=== PATIENT | female | born 1960 | race Caucasian/White ===

== ENCOUNTER 2016-09-04 18:48 | Emergency (ER) | payer OTHER ==
[2016-09-04 18:58] VITALS: TEMP 98.5; BMI 24.4
--- NOTE | 2016-09-04 19:20 | PDOC ---
History of Present Illness - History of Present Illness Initial Comments: 09/04/16 23:12 Patient is a 56 year old female with significant medical hx of nerve palsy, arthritis, and hyperlipidemia who is presenting to the ED with one week of blurry vision and one day of slurred speech. The patient reports she had blurry vision for over a week but she figured it was due to her history of nerve palsy. Today she woke up with difficulty speaking that was waxing and waning. She also complains of dizziness and nausea. <Celeste Rivas - Last Filed: 09/04/16 23:12> <Linette Levine - Last Filed: 09/04/16 23:50> - General Chief Complaint: CVA/TIA Stated Complaint: BLURRY VISION/DIFF BREATHING Time Seen by Provider: 09/04/16 19:16 Past History <Celeste Rivas - Last Filed: 09/04/16 23:12> - Past Medical History Anemia: No Asthma: No Cancer: No Cardiac Disorders: No CVA: No COPD: No CHF: No Dementia: No Diabetes: No GI Disorders: Yes (H/O COLON POLYPS) Disorders: No HTN: No Hypercholesterolemia: Yes (NO MEDICATIONS) Liver Disease: No Seizures: No Thyroid Disease: No Other medical history: ARTHRITIS - Surgical History Abdominal Surgery: No Appendectomy: Yes Cardiac Surgery: No Cholecystectomy: No Lung Surgery: No Neurologic Surgery: No Orthopedic Surgery: No - Psycho/Social/Smoking Cessation Hx Suicidal Ideation: No Smoking History: Never smoked Have you smoked in the past 12 months: No If you are a former smoker, when did you quit?: 2009 Information on smoking cessation initiated: No Hx Alcohol Use: Yes (SOCIALLY) Drug/Substance Use Hx: No Substance Use Type: Alcohol Hx Substance Use Treatment: No <Linette Levine - Last Filed: 09/04/16 23:50> - Past Medical History Allergies/Adverse Reactions: Allergies Allergy/AdvReac Type Severity Reaction Status Date / Time No Known Allergies Allergy Verified 09/04/16 18:58 Home Medications: Ambulatory Orders NK [No Known Home Medication] 09/04/16 Review of Systems - Review of Systems Comments:: 09/04/16 23:13 CONSTITUTIONAL: Absent: fever, chills, diaphoresis, generalized weakness, malaise, loss of appetite HEENT: Present: diplopia Absent: rhinorrhea, nasal congestion, throat pain, throat swelling, difficulty swallowing, mouth swelling, ear pain, eye pain CARDIOVASCULAR: Absent: chest pain, syncope, palpitations, irregular heart rate, lightheadedness , peripheral edema RESPIRATORY: Absent: cough, shortness of breath, dyspnea with exertion, orthopnea, wheezing, stridor, hemoptysis GASTROINTESTINAL: Present: nausea Absent: abdominal pain, abdominal distension, vomiting, diarrhea, constipation, melena, hematochezia GENITOURINARY: Absent: dysuria, frequency, urgency, hesitancy, hematuria, flank pain, genital pain MUSCULOSKELETAL: Absent: myalgia, arthralgia, joint swelling SKIN: Absent: rash, itching, pallor HEMATOLOGIC/IMMUNOLOGIC: Absent: easy bleeding, easy bruising, lymphadenopathy, frequent infections ENDOCRINE: Absent: unexplained weight gain, unexplained weight loss, heat intolerance, cold intolerance NEUROLOGIC: Present: slurred speech, dizziness Absent: headache, focal weakness or paresthesia, unsteady gait, seizure, mental status changes, bladder or bowel incontinence. PSYCHIATRIC: Absent: anxiety, depression, suicidal or homicidal ideation, hallucinations <Celeste Rivas - Last Filed: 09/04/16 23:12> *Physical Exam - Vital Signs Last Vital Signs Temp Pulse Resp BP Pulse Ox 98.5 F 88 18 182/95 100 09/04/16 18:53 09/04/16 18:53 09/04/16 18:53 09/04/16 18:53 09/04/16 19:20 - Physical Exam Comments: 09/04/16 23:15 GENERAL: Well developed, well nourished. Awake and alert. No acute distress. HEENT: Normocephalic, atraumatic. PERRLA. Extraoccular eye movements show superior oblique palsy. No conjunctival pallor. Sclera are non-icteric. Moist mucous membranes. Oropharynx is clear. NECK: Supple. Full ROM. No JVD. Carotid pulses 2+ and symmetric, without bruits. No thyromegaly. No lymphadenopathy. CARDIOVASCULAR: Regular rate and rhythm. No murmurs, rubs, or gallops. Distal pulses are 2+ and symmetric. PULMONARY: No evidence of respiratory distress. Lungs clear to auscultation bilaterally. No wheezing, rales or rhonchi. ABDOMINAL: Soft. Non-tender. Non-distended. No rebound or guarding. No organomegaly. Normoactive bowel sounds. MUSCULOSKELETAL: Normal range of motion at all joints. No bony deformities or tenderness. No CVA tenderness. EXTREMITIES: No cyanosis. No clubbing. No edema. No calf tenderness. SKIN: Warm and dry. Normal capillary refill. No rashes. No jaundice. NEUROLOGICAL: Alert, awake, appropriate. Cranial nerves 2-12 intact. No gross focal neural deficits. Mild facial numbness on the left. Normal speech. Gait is normal without ataxia. PSYCHIATRIC: Cooperative. Good eye contact. Appropriate mood and affect. <Celeste Rivas - Last Filed: 09/04/16 23:12> - Vital Signs Last Vital Signs Temp Pulse Resp BP Pulse Ox 98.5 F 88 18 182/95 98 09/04/16 18:53 09/04/16 18:53 09/04/16 18:53 09/04/16 18:53 09/04/16 18:53 <Linette Levine - Last Filed: 09/04/16 23:50> Discharge Disposition <Celeste Rivas - Last Filed: 09/04/16 23:12> <Linette Levine - Last Filed: 09/04/16 23:50> - Diagnosis Gaze palsy, Vilchis's palsy - Discharge Dispostion Disposition: HOME Condition at time of disposition: Stable - Referrals Referrals: Gosia Baron MD [Primary Care Provider] - - Patient Instructions Printed Discharge Instructions: DI for Vilchis's Palsy, DI for Visual Field Disturbances Additional Instructions: Tomorrow see Dr Gosia Baron -she is going to make arrangement for further neurological testing and 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 ED Treatment Course - LABORATORY CBC & Chemistry Diagram: 09/04/16 19:30 09/04/16 19:30 - ADDITIONAL ORDERS Additional order review: Laboratory Results 09/04/16 09/04/16 19:30 19:30 INR 0.95 Urine Color Colorless Urine Appearance Clear Urine pH 6.0 Ur Specific Grandy 1.002 Urine Protein Negative Urine Glucose (UA) Negative Urine Ketones Negative Urine Blood Negative Urine Nitrite Negative Urine Bilirubin Negative Urine Urobilinogen Negative Ur Leukocyte Esterase Trace H Urine RBC <1 Urine WBC 1 Ur Epithelial Cells Rare Urine Bacteria Few 09/04/16 19:30 RBC 4.63 MCV 93.1 MCHC 33.7 RDW 12.5 MPV 7.2 L Neutrophils % 61.7 Lymphocytes % 28.2 Monocytes % 7.2 Eosinophils % 1.9 Basophils % 1.0 - RADIOLOGY Radiograph Interpretation: 09/04/16 20:15 Aircraft Ordnance Technician: (eligioman) Begin of Report Content Referring Physician: Linette Levine Ina Escamilla Spoke with Dr. Levine at 1946 hrs THIS DOCUMENT HAS BEEN ELECTRONICALLY SIGNED Keaton Ya MD 09/04/2016 19:47 EST M.D. Please call [facility] [phone] with questions. PREVIOUS REPORT: Referring Physician: Linette Levine Patient Name: Ina Escamilla THIS IS A PRELIMINARY REPORT FROM [facility] DATE OF SERVICE: 2015-01-21 13:36:06.0 IMAGES: 166 EXAM: CT of the brain without contrast HISTORY:Possible cerebrovascular accident COMPARISON: None. FINDINGS:Serial transaxial images of the brain are available without intravenous contrast agent. The brain parenchyma is normal. The ventricular system is within normal limits. Mastoid air cells are well-aerated. The calvarium appears intact. Visible portions of the paranasal sinuses are well-aerated. IMPRESSION: Negative study THIS DOCUMENT HAS BEEN ELECTRONICALLY SIGNED Keaton Ya MD 09/04/2016 19:40 EST M.D. Please call [facility] [phone] with questions. End of Report Content - Medications Given in the ED: ED Medications Discontinued Medications Generic Name Dose Route Start Last Admin Trade Name Freq PRN Reason Stop Dose Admin Acetaminophen 1,000 mg 09/04/16 19:50 09/04/16 19:54 Ofirmev Injection - IVPB 09/04/16 19:51 1,000 mg ONCE ONE Administration <Celeste Rivas - Last Filed: 09/04/16 23:12> - LABORATORY CBC & Chemistry Diagram: 09/04/16 19:30 09/04/16 19:30 <Linette Levine - Last Filed: 09/04/16 23:50> Attestations - Attestations 09/04/16 23:18 Documentation prepared by Celeste Rivas, acting as medical records specialist for Linette Levine MD. <Celeste Rivas - Last Filed: 09/04/16 23:12>
[2016-09-04] MEDS ORDERED: SODIUM CHLORIDE 1,000 ML IV SCH (19:30)
[2016-09-04] MEDS ORDERED: ACETAMINOPHEN INJECTION 100 ML IVPB ONE (19:50)
[2016-09-04] MEDS ORDERED: ACETAMINOPHEN 1000 MG/100 ML VIAL (NON FORMULARY) IVPB ONE (19:50)
[2016-09-04 19:52] LABS: EOSINOPHIL 1.9 % (0-4.5); MCH 31.4 pg (25.7-33.7); MCHC 33.7 g/dl (32.0-36.0); MEAN CELL VOLUME 93.1 fl (80-96); MEAN PLT VOLUME 7.2 fl (7.5-11.1); NEUTROPHILS 61.7 % (42.8-82.8); PLATELET COUNT 330 K/MM3 (134-434); RDW 12.5 % (11.6-15.6); WHITE BLOOD COUNT 5.9 K/mm3 (4.0-10.0)
[2016-09-04 19:53] LABS: URINE APPEARANCE CLEAR; URINE BILIRUBIN NEGATIVE (NEGATIVE); URINE BLOOD NEGATIVE (NEGATIVE); URINE COLOR COLORLESS; URINE GLUCOSE (UA) NEGATIVE (NEGATIVE); URINE KETONE NEGATIVE (NEGATIVE); URINE NITRITE NEGATIVE (NEGATIVE); URINE PROTEIN NEGATIVE (NEGATIVE); URINE UROBILINOGEN NEGATIVE E.U./dl (0.2-1.0)
[2016-09-04 19:57] LABS: URINE LEUK ESTERASE TRACE (NEGATIVE)
[2016-09-04 20:01] LABS: URINE BACTERIA FEW /hpf (NONE SEEN); URINE RBC <1 /hpf (0-3); URINE WBC 1 /hpf (3-5)
[2016-09-04 20:06] LABS: INR 0.95 (0.82-1.09); PROTHROMBIN TIME (PATIENT) 10.4 SEC (9.98-11.88)
[2016-09-04 20:46] LABS: ALBUMIN 4.3 g/dl (3.4-5.0); ALK PHOS 101 U/L (45-117); ANION GAP 5 (8-16); BILIRUBIN,TOTAL 0.3 mg/dL (0.2-1.0); CALCIUM 9.2 mg/dL (8.5-10.1); CHOLESTEROL 267 mg/dL (50-200); CO2 30 mmol/L (21-32); CREATININE 0.6 mg/dL (0.55-1.02); GLUCOSE,RANDOM 105 mg/dL (74-106); LDL CHOLESTEROL (ONLY SJRH) 176 mg/dL (5-100); SGOT/AST 19 U/L (15-37); SGPT/ALT 32 U/L (12-78); TOT PROT 7.6 g/dl (6.4-8.2); TROPONIN I < 0.02 ng/ml (0.00-0.05)
[2016-09-04] MEDS ORDERED: predniSONE 20 MG TABLET (UD) PO ONE (22:53)
[2016-09-04] MEDS ORDERED: ACYCLOVIR 400 MG TABLET PO ONE (22:54)
[2016-09-04] MEDS ORDERED: predniSONE 20 MG TABLET (UD) ONE (22:58)
[2016-09-04] MEDS ORDERED: ACYCLOVIR 200 MG CAPSULE ONE (22:58)
[2016-09-05 00:08] VITALS: BP 156/87; PULSE 77
--- NOTE | 2016-09-05 09:52 | EKG ---
Test Reason : Blood Pressure : / mmHG Vent. Rate : 072 BPM Atrial Rate : 072 BPM P-R Int : 140 ms QRS Dur : 082 ms QT Int : 390 ms P-R-T Axes : 033 013 032 degrees QTc Int : 427 ms NORMAL SINUS RHYTHM NORMAL ECG NO PREVIOUS ECGS AVAILABLE Confirmed by LILLI PAEZ MD ([id number]) on 09/05/2016 9:52:08 AM Referred By: Overread By: LILLI PAEZ MD
== END 2016-09-05 00:08 | disposition home or self-care (01) ==
LOC: JER 18:48
PROC: 3E0337Z Introduction of Electrolytic and Water Balance Substance into Peripheral Vein, Percutaneous Approach (ICD-10-PCS; principal; 2016-09-04)
PROC: 3E033NZ Introduction of Analgesics, Hypnotics, Sedatives into Peripheral Vein, Percutaneous Approach (ICD-10-PCS; 2016-09-04)
DX: G51.0 Bell's palsy (principal)
CPT/HCPCS: 36415; 70450-TC; 71010-TC; 80053; 81003; 81015; 82465; 82550; 83718; 83721; 84478; 84484; 85025; 85610; 86850; 86900; 86901; 93005; 93010; 99285-25

== ENCOUNTER 2019-07-11 07:32 | Day surgery (SDC) | payer OTHER ==
[2019-07-08 12:27] VITALS: BMI 27.1
[2019-07-11] MEDS ORDERED: BUPIVACAINE HCL/PF 2.5 MG/ML - 30 ML VIAL IJ ONE (10:05)
[2019-07-11] MEDS ORDERED: EPINEPHrine 1:1,000 1 MG/1 ML - 30ML VIAL (INJECTION) ONE (10:05)
[2019-07-11] MEDS ORDERED: PROPOFOL 20 ML ONE ×4 (10:25→10:54)
[2019-07-11] MEDS ORDERED: ceFAZolin SODIUM 1 GM VIAL ONE (10:43)
[2019-07-11] MEDS ORDERED: KETOROLAC TROMETHAMINE 30 MG/1 ML VIAL ONE (11:09)
[2019-07-11] MEDS ORDERED: BUPIVACAINE HCL/PF 0.25% (2.5MG/ML) 10 ML VIAL IJ ONE (11:15)
[2019-07-11] MEDS ORDERED: oxyCODONE HCL 5 MG TABLET PO PRN (11:32)
[2019-07-11] MEDS ORDERED: ONDANSETRON 4 MG/2 ML VIAL IVPUSH PRN (11:32)
[2019-07-11] MEDS ORDERED: ACETAMINOPHEN 325 MG TABLET (FP) PO PRN (11:32)
[2019-07-11 12:53] VITALS: BP 132/76; PULSE 75; TEMP 98
--- NOTE | 2019-07-11 13:55 | OP ---
DATE OF OPERATION: 07/11/2019 Done at [facility] SURGEON: Stephan Graves MD MANAGER STRATEGIC: ROMULO Liu PREOPERATIVE DIAGNOSES: 1. Left knee medial and lateral meniscal tear. 2. Left knee cartilage injury. 3. Left knee synovitis. POSTOPERATIVE DIAGNOSES: 1. Left knee medial and lateral meniscal tear. 2. Left knee cartilage injury. 3. Left knee synovitis. PROCEDURE: 1. Left knee arthroscopy with partial meniscectomy, medial and lateral meniscus, CPT code 15579. 2. Left knee arthroscopy with chondroplasty and abrasion-plasty, CPT code 74907. 3. Left knee arthroscopy with synovectomy, CPT code 24928. FINDINGS: 1. Medial meniscus [id number]-[id number] horn tear. 2. Lateral meniscus central [id number] horn tear. 3. Synovitis patellofemoral medial and lateral notch area. 4. Central grade 3-4 cartilage injury central medial femoral condyle with cartilage flap 6 cm x 4 cm. 5. ACL and PCL intact. 6. Diffuse grade 1-2 cartilage injury lateral joint line. 7. Central grade 2-3 cartilage injury patella with 3-4 changes patellofemoral trochlea central /. PROCEDURE: Informed consent was obtained. The patient came to the operating room, where the lower extremity was prepped and draped in a sterile fashion. A tourniquet was placed on the upper thigh, but not inflated. Using standard arthroscopic technique, a lateral incision and portal was made to allow for introduction of the camera into the suprapatellar bursa. This was then taken to the medial joint line, where under direct visualization, a medial incision and portal was made. Excessive synovium noted in the medial, lateral and patellofemoral and notch area was removed by an upbiter, shaver and Bovie cautery. This was found to bring in inflammatory tissue into the joint surface, a source of pain and dysfunction. Probing of the medial and lateral meniscus found tears, as described in the findings. These were removed with the upbiter and shaver and taken back to a stable rim. Grade 2 to 3 degenerative changes were treated with a chondroplasty, removing all flaking surfaces with low-setting Bovie along the periphery to prevent further flaking. Grade 4 changes, as noted, were treated with an abrasoplasty, creating a bleeding surface at the bone/cartilage interface. Aggressive debridement with shaver/jose j created bleeding surface. Micro fracture also done when indicated in findings. All areas of the knee were once again reexamined. The knee was then drained and a single suture was placed in all portals. A sterile dressing was placed and the patient was transferred to the recovery room without complication. The PA listed above was present and assisted at surgery. Their presence was absolutely medically necessary for the completion of the procedure. They helped hold the arthroscopy, pass instruments (and implants when indicated) and the procedure could not have been completed without their assistance. STEPHAN GRAVES M.D. [id number]
--- NOTE | 2019-07-16 13:36 | PATH ---
Surgical Pathology Report Patient Name: CRISTÓBAL LOPZE [facility]. Rec. #: [id number] /Age/Gender: 1960 (Age: 59) / F Account: [id number] Location: [facility] Taken: 07/11/2019 Received: 07/11/2019 Reported: 07/16/2019 Physicians: Stephan Rinaldi M.D. Specimen(s) Received LEFT KNEE SHAVINGS Clinical History Internal derangement of the left knee Final Diagnosis Knee, left, arthroscopic shavings: Fibrosynovial tissue and cartilage. Electronically Signed Daina Faye M.D. Gross Description Received in formalin, labeled "left knee shavings," is a 3.5 x 3.0 x 0.3 cm. aggregate of mckeon-yellow soft tissue fragments. A manufacturer representative portion is submitted in one cassette. /07/14/2019 saudi07/14/2019
== END 2019-07-11 12:54 | disposition home or self-care (01) ==
LOC: FASU 07:32
PROVIDERS: ATTEND Orthopaedic Surgery
PROC: 0SBD4ZZ Excision of Left Knee Joint, Percutaneous Endoscopic Approach (ICD-10-PCS; 2019-07-11)
PROC: 0SBD4ZZ Excision of Left Knee Joint, Percutaneous Endoscopic Approach (ICD-10-PCS; 2019-07-11)
PROC: 0SBD4ZZ Excision of Left Knee Joint, Percutaneous Endoscopic Approach (ICD-10-PCS; principal; 2019-07-11 10:50)
DX: S83.242A Other tear of medial meniscus, current injury, left knee, initial encounter (principal); S83.282A Other tear of lateral meniscus, current injury, left knee, initial encounter; S83.8X2A Sprain of other specified parts of left knee, initial encounter; M65.862 Other synovitis and tenosynovitis, left lower leg; X58.XXXA Exposure to other specified factors, initial encounter; Y93.9 Activity, unspecified; Y92.9 Unspecified place or not applicable
CPT/HCPCS: 88304-TC; 94760